=== PATIENT | male | born 1980 | race African-American/Black ===

== ENCOUNTER 2016-09-30 17:24 | Emergency (ER) | payer SELFPAY ==
--- NOTE | 2016-10-01 15:09 | ER ---
ADMIT: 09/30/2016 RM/LOC: ER [facility] MR#: [id number] [place], [place] [id number] NAMRATA WHITE [address] [facility] [place] [address] Emergency Room Report SEX: M AGE: 36 : 1980 DATE: 09/30/2016 ADDENDUM: 36-year-old black male coming in intoxicated. Brought in by police but he is here because he has a warrant for his arrest. He is chronic alcoholic, his blood alcohol was 221. Tox screen was negative. CBC and chemistry, do not see anything. He is a little unsteady on his feet, but easily walked with a little bit of assistance. He is not a good historian usually. At this time, he has no acute injuries. He has chronic alcohol dependency and intoxication. He is released to the police. He is cleared for correction. CONDITION ON DISCHARGE: Fair. Matheus Lazar MD/ ene JOB #: [id number] CC: Matheus Lazar MD, Attending Physician Kevin Zavaleta MD, Family Physician
== END 2016-09-30 18:30 | disposition home or self-care (01) ==
LOC: ER 17:24
DX: F10.229 Alcohol dependence with intoxication, unspecified (principal); Z02.89 Encounter for other administrative examinations; Z79.899 Other long term (current) drug therapy; Z85.118 Personal history of other malignant neoplasm of bronchus and lung